=== PATIENT | female | born 1955 | race Native Hawaiian/Other Pacific Islander ===

== ENCOUNTER 2017-01-20 08:47 | Outpatient (CLI) | payer OTHER ==
[~2017-01-20 08:47] MED LIST: ALPR0.5T24 PO; BENA10TA3 PO; BUSPIRONE15 MG PO; CLONIDINE0.1 MG PO; LEVO0.0529 PO; METF500T PO; METO25TA4 OR; MUPI2OIN2 TOP; NUCYNTA ER150 MG OR; PRAVACHOL20 MG PO; PROZAC10 MG PO; ROPINIROLE1 MG OR; TIZA4TAB5 PO; TRAZ100T OR; VESICARE10 MG OR; ZANTAC 75 PO
[2017-01-20 09:22] LABS: PLATELET COUNT 169 K/uL (152-353)
== END 2017-01-20 19:32 | disposition home or self-care (01) ==
LOC: LABW 08:47
PROVIDERS: Internal Medicine Cardiovascular Disease
DX: E78.4 Other hyperlipidemia (principal); I50.9 Heart failure, unspecified
CPT/HCPCS: 36415; 80048; 80061; 80076; 83880; 85027

== ENCOUNTER 2017-05-10 18:05 | Emergency (ER) | payer OTHER ==
[~2017-05-10] VITALS: Ht 165.1 cm; Wt 90.7 kg
[2017-05-10 18:20] VITALS: BP 157/98; TEMP 97.9
== END 2017-05-10 18:39 | disposition home or self-care (01) ==
LOC: ED 18:05
DX: R07.89 Other chest pain (principal)
CPT/HCPCS: 99281

== ENCOUNTER 2018-03-30 12:07 | Outpatient (CLI) | payer OTHER ==
[2018-03-30] MEDS ORDERED: OXYCODONE HCL E30 MG PO (12:42)
[2018-03-30] MEDS ORDERED: GLIM2TAB PO (12:43)
[2018-03-30] MEDS ORDERED: SOMA350 MG PO (12:44)
[2018-03-30] MEDS ORDERED: ROSU10TA PO (12:45)
[2018-03-30] MEDS ORDERED: ZOLOFT25 MG OR (12:46)
[2018-03-30] MEDS ORDERED: CARDURA1 MG PO (12:46)
[2018-03-30] MEDS ORDERED: ENDOCET1 TA3 PO (12:47)
== END 2018-03-30 12:11 | disposition short-term general hospital (02) ==
LOC: AMB 12:07
DX: R53.1 Weakness (principal)
CPT/HCPCS: A0425; A0429

== ENCOUNTER 2018-03-30 12:15 | Emergency (ER) | payer OTHER ==
[~2018-03-30] VITALS: Ht 167.6 cm; Wt 90.7 kg
[2018-03-30 12:25] VITALS: TEMP 98.2
[2018-03-30] MEDS ORDERED: OXYCODONE HCL E30 MG PO (12:42)
[2018-03-30] MEDS ORDERED: GLIM2TAB PO (12:43)
[2018-03-30] MEDS ORDERED: SOMA350 MG PO (12:44)
[2018-03-30] MEDS ORDERED: ROSU10TA PO (12:45)
[2018-03-30] MEDS ORDERED: ZOLOFT25 MG OR (12:46)
[2018-03-30] MEDS ORDERED: CARDURA1 MG PO (12:46)
[2018-03-30] MEDS ORDERED: ENDOCET1 TA3 PO (12:47)
[2018-03-30 13:45] LABS: PLATELET COUNT 189 K/uL (152-353)
[2018-03-30 13:52] LABS: POTASSIUM 3.7 mmol/L (3.6-5.2)
[2018-03-30 14:43] VITALS: BP 110/72
== END 2018-03-30 14:43 | disposition home or self-care (01) ==
LOC: ED 12:15
PROVIDERS: Emergency Medicine
DX: M79.1 Myalgia (principal); G25.2 Other specified forms of tremor; R00.1 Bradycardia, unspecified; Z79.899 Other long term (current) drug therapy
CPT/HCPCS: 80053; 81000; 85027; 87088; 93005; 96372; 99283; J2360

== ENCOUNTER → 2018-06-21 14:55 | Outpatient (CLI) | payer OTHER ==
[~2018-06-21 14:55] MED LIST changes: +CARDURA1 MG PO; +ENDOCET1 TA3 PO; +GLIM2TAB PO; +OXYCODONE HCL E30 MG PO; +ROSU10TA PO; +SOMA350 MG PO; +ZOLOFT25 MG OR
== END | disposition home or self-care (01) ==
LOC: AMB 14:55
DX: E16.1 Other hypoglycemia (principal)

== ENCOUNTER 2018-08-15 08:58 | Outpatient (CLI) | payer OTHER | END 2018-08-15 22:04 | disposition home or self-care (01) | LOC: LABW 08:58 | DX: E11.9 Type 2 diabetes mellitus without complications (principal); E03.4 Atrophy of thyroid (acquired); E78.5 Hyperlipidemia, unspecified | CPT/HCPCS: 36415; 80061; 80069; 82550; 83036; 84436; 84443; 84450; 84460; 84480 ==

== ENCOUNTER 2019-02-16 11:43 | Outpatient (CLI) | payer OTHER ==
[2019-02-16] MEDS ORDERED: METOCLOPRAM5 MG PO (12:31)
[2019-02-16] MEDS ORDERED: HYDROXYZ PAM100 MG PO (12:34)
[2019-02-16] MEDS ORDERED: BENA20TA2 PO (12:38)
== END 2019-02-16 11:46 | disposition short-term general hospital (02) ==
LOC: AMB 11:43
DX: R53.1 Weakness (principal); I95.89 Other hypotension
CPT/HCPCS: A0425; A0427

== ENCOUNTER 2019-02-16 11:48 | Emergency (ER) | payer OTHER ==
[~2019-02-16] VITALS: Ht 165.1 cm; Wt 86.2 kg
[2019-02-16] MEDS ORDERED: METOCLOPRAM5 MG PO (12:31)
[2019-02-16] MEDS ORDERED: HYDROXYZ PAM100 MG PO (12:34)
[2019-02-16] MEDS ORDERED: BENA20TA2 PO (12:38)
[2019-02-16 12:41] LABS: PLATELET COUNT 166 K/uL (152-353)
[2019-02-16 12:54] LABS: POTASSIUM 3.8 mmol/L (3.6-5.2)
[2019-02-16 15:00] VITALS: BP 124/74; TEMP 98
== END 2019-02-16 15:00 | disposition home or self-care (01) ==
LOC: ED 11:48
PROVIDERS: Emergency Medicine
DX: J40 Bronchitis, not specified as acute or chronic (principal); J44.1 Chronic obstructive pulmonary disease with (acute) exacerbation; N39.0 Urinary tract infection, site not specified; R03.1 Nonspecific low blood-pressure reading
CPT/HCPCS: 80053; 80307; 81000; 85027; 87077; 87086; 87088; 87186; 94664; 96374; 99284; J2310

== ENCOUNTER 2019-04-13 12:07 | Outpatient (CLI) | payer OTHER ==
[~2019-04-13 12:07] MED LIST changes: +BENA20TA2 PO; +HYDROXYZ PAM100 MG PO; +METOCLOPRAM5 MG PO
== END 2019-04-13 12:11 | disposition short-term general hospital (02) ==
LOC: AMB 12:07
DX: M79.669 Pain in unspecified lower leg (principal); M25.579 Pain in unspecified ankle and joints of unspecified foot; W18.39XA Other fall on same level, initial encounter; Y92.018 Other place in single-family (private) house as the place of occurrence of the external cause
CPT/HCPCS: A0425; A0427

== ENCOUNTER 2019-04-13 12:24 | Emergency (ER) | payer OTHER ==
[~2019-04-13] VITALS: Ht 165.1 cm; Wt 86.2 kg
[2019-04-13 13:01] LABS: POTASSIUM 3.2 mmol/L (3.6-5.2); SODIUM 141 mmol/L (136-145)
[2019-04-13 13:06] LABS: PLATELET COUNT 183 K/uL (152-353)
[2019-04-13 17:00] VITALS: BP 132/74; TEMP 98.8
== END 2019-04-13 17:00 | disposition home or self-care (01) ==
LOC: ED 12:24
PROVIDERS: Family Medicine
PROC: 2W3LX1Z Immobilization of Right Lower Extremity using Splint (ICD-10-PCS; principal; 2019-04-13)
DX: S72.434A Nondisplaced fracture of medial condyle of right femur, initial encounter for closed fracture (principal); E87.6 Hypokalemia; S93.491A Sprain of other ligament of right ankle, initial encounter; R00.0 Tachycardia, unspecified; W18.39XA Other fall on same level, initial encounter; Y92.89 Other specified places as the place of occurrence of the external cause
CPT/HCPCS: 80053; 82550; 84484; 85027; 93005; 96374; 96375; 99284; J1885; J2175; J2550

== ENCOUNTER 2019-04-15 09:29 | Outpatient (CLI) | payer OTHER | END 2019-04-15 09:57 | disposition short-term general hospital (02) | LOC: AMB 09:29 | DX: M79.605 Pain in left leg (principal); M79.604 Pain in right leg; M25.562 Pain in left knee; M25.561 Pain in right knee | CPT/HCPCS: A0425; A0427 ==

== ENCOUNTER 2019-07-26 01:25 | Observation (INO) | payer OTHER ==
[2019-07-26] VITALS (8 sets, daily range): BP systolic 72–132; BP diastolic 33–75; TEMP 97.5–98.5; Ht 175.3 cm; Wt 84.0 kg
[~2019-07-26] VITALS: Ht 175.3 cm; Wt 84.0 kg
[2019-07-26 02:30] LABS: PLATELET COUNT 224 K/uL (152-353)
[2019-07-26 03:34] LABS: POTASSIUM 4.3 mmol/L (3.6-5.2)
--- NOTE | 2019-07-26 05:44 | NUR ---
07/26/19 0505 TO ROOM 1106 DX DEHYDRATION,ACUTE RENAL FAILURE,HYPOTENSION.PT ALERT ORIENTED.SALINE LOCH 22 GAUDGE INTACT TO LEFT THUMB NO SWELLING NOTED. APPLE JUICE GIVEN TOLERATED WELL.CALL LIGHT WITHIN REACH.CC
[2019-07-26] MEDS ORDERED: FURO20TA67 PO (06:28)
[2019-07-26] MEDS ORDERED: RANI150T78 PO (06:29)
[2019-07-26] MEDS ORDERED: ZANAFLEX2 MG PO (06:30)
[2019-07-26] MEDS ORDERED: TIZA4TAB5 PO (06:31)
[2019-07-26] MEDS ORDERED: SERT100T PO (06:32)
[2019-07-26] MEDS ORDERED: MOBIC15 MG PO (06:33)
[2019-07-26] MEDS ORDERED: LYRICA 100 MG100 MG PO ×2 (06:35→06:51)
[2019-07-26] MEDS ORDERED: METOPROLOL25 M1 PO ×2 (06:36→06:53)
[2019-07-26] MEDS ORDERED: TRAZ100T PO ×2 (06:39→06:54)
[2019-07-26] MEDS ORDERED: GLIM2TAB PO ×2 (06:40→06:55)
--- NOTE | 2019-07-26 07:43 | NUR ---
Patient was admitted with dehydration, hypotension, arf and is on 1800 calorie diet plan, 69"and weight at 181.6 lbs. and elevated WBC, BUN, Creat, gl 133, AST 41 elevated and ALT 14 depressed.alb 3.2 see abnormal labs reviewed all. PMH of HTN and DM, fever. IBW 145+/-10% and is 126% IBW and BMI 26.8 overweight. kcal for weight at 182 = 2482 x 30 and x 25 = 2068 and protein 83-107 grams and fluids 7065-8180 per MD. Recommend: 1- Increase fluids as tolerated. 2- Add High Fiber to present diet. 3- Monitor abnormal labs
[2019-07-26] MEDS ORDERED: OXYCODONE30 MG PO (14:29)
[2019-07-27] VITALS: BP 144/80; TEMP 97.9
[2019-07-27 04:00] VITALS: BP 133/86; TEMP 98.2
[2019-07-27 07:49] LABS: POTASSIUM 4.4 mmol/L (3.6-5.2)
--- NOTE | 2019-07-27 07:58 | NUR ---
PT DOSE NOT WANT A BREATHING TX. BBS CTA.
[2019-07-27 08:00] VITALS: BP 140/84; TEMP 98.1
[2019-07-27 08:15] LABS: PLATELET COUNT 180 K/uL (152-353)
[2019-08-12] MEDS ORDERED: TRAZ100T PO (01:27)
[2019-08-12] MEDS ORDERED: BENA20TA2 PO (01:28)
== END 2019-07-27 10:25 | disposition home or self-care (01) ==
LOC: ED 01:25 → MED/SURG 04:13
PROVIDERS: Emergency Medicine; ADMIT Internal Medicine
DX: N17.8 Other acute kidney failure (principal); N18.9 Chronic kidney disease, unspecified; N10 Acute pyelonephritis; I10 Essential (primary) hypertension; Z91.81 History of falling; F17.210 Nicotine dependence, cigarettes, uncomplicated; Z71.6 Tobacco abuse counseling; E86.0 Dehydration; E03.8 Other specified hypothyroidism; E11.9 Type 2 diabetes mellitus without complications; F41.8 Other specified anxiety disorders; N32.81 Overactive bladder; E78.49 Other hyperlipidemia; G89.4 Chronic pain syndrome; I50.9 Heart failure, unspecified; G62.89 Other specified polyneuropathies; K21.9 Gastro-esophageal reflux disease without esophagitis
CPT/HCPCS: 80048; 80053; 80307; 81000; 82570; 84300; 84443; 85027; 87077; 87086; 87088; 87186; 93005; 94760; 96360; 96366; 99220; 99284; G0378; J1650; J1956

== ENCOUNTER 2019-08-11 21:00 | Outpatient (CLI) | payer OTHER ==
[~2019-08-11 21:00] MED LIST changes: +FURO20TA67 PO; +LYRICA 100 MG100 MG PO; +METOPROLOL25 M1 PO; +MOBIC15 MG PO; +OXYCODONE30 MG PO; +RANI150T78 PO; +SERT100T PO; +TRAZ100T PO; +ZANAFLEX2 MG PO
[2019-08-12] MEDS ORDERED: TRAZ100T PO ×2 (01:27)
[2019-08-12] MEDS ORDERED: BENA20TA2 PO ×2 (01:28)
== END 2019-08-11 21:04 | disposition short-term general hospital (02) ==
LOC: AMB 21:00
DX: M25.572 Pain in left ankle and joints of left foot (principal); M25.562 Pain in left knee; R53.1 Weakness; W19.XXXA Unspecified fall, initial encounter; Y92.018 Other place in single-family (private) house as the place of occurrence of the external cause
CPT/HCPCS: A0425; A0429

== ENCOUNTER 2019-08-11 21:16 | Observation (INO) | payer OTHER ==
[~2019-08-11] VITALS: Ht 170.2 cm; Wt 84.9 kg
[2019-08-11 21:16] VITALS: BP 117/80; TEMP 98.5
[2019-08-11 22:32] LABS: PLATELET COUNT 133 K/uL (152-353)
[2019-08-11 22:40] LABS: POTASSIUM 3.5 mmol/L (3.6-5.2); SODIUM 141 mmol/L (136-145)
[2019-08-12 00:43] VITALS: BP 144/93; TEMP 99.2; Ht 170.2 cm; Wt 84.9 kg
[2019-08-12] MEDS ORDERED: TRAZ100T PO ×2 (01:27)
[2019-08-12] MEDS ORDERED: BENA20TA2 PO ×2 (01:28)
[2019-08-12 04:00] VITALS: BP 117/78; TEMP 98.8
[2019-08-12 08:00] VITALS: BP 99/65; TEMP 99.2
[2019-08-12 08:48] LABS: POTASSIUM 3.7 mmol/L (3.6-5.2)
== END 2019-08-12 12:04 | disposition home or self-care (01) ==
LOC: ED 21:16 → MED/SURG 23:45
PROVIDERS: Emergency Medicine; ADMIT Family Medicine
DX: S80.12XA Contusion of left lower leg, initial encounter (principal); W18.39XA Other fall on same level, initial encounter; Y92.89 Other specified places as the place of occurrence of the external cause; E83.42 Hypomagnesemia; R53.83 Other fatigue; I10 Essential (primary) hypertension; D69.6 Thrombocytopenia, unspecified; E11.9 Type 2 diabetes mellitus without complications; K21.9 Gastro-esophageal reflux disease without esophagitis; I25.10 Atherosclerotic heart disease of native coronary artery without angina pectoris; E78.00 Pure hypercholesterolemia, unspecified; E07.89 Other specified disorders of thyroid; J45.998 Other asthma; Z79.899 Other long term (current) drug therapy
CPT/HCPCS: 36415; 36600; 51702; 80048; 80053; 80307; 81000; 82805; 83735; 84484; 85027; 93005; 94664; 94760; 96365; 99220; 99284; G0378; J2930; J3475

== ENCOUNTER 2019-08-20 14:28 | Outpatient (CLI) | payer OTHER | END 2019-08-20 14:32 | disposition short-term general hospital (02) | LOC: AMB 14:28 | DX: R41.82 Altered mental status, unspecified (principal); R53.83 Other fatigue; S00.83XA Contusion of other part of head, initial encounter; R26.81 Unsteadiness on feet; R25.1 Tremor, unspecified; W19.XXXA Unspecified fall, initial encounter | CPT/HCPCS: A0425; A0427 ==

== ENCOUNTER 2019-08-20 14:47 | Observation (INO) | payer OTHER ==
[2019-08-20] VITALS (8 sets, daily range): BP systolic 90–158; BP diastolic 57–121; TEMP 97.7–98; Ht 170.2 cm; Wt 81.8 kg
[~2019-08-20] VITALS: Ht 170.2 cm; Wt 81.8 kg
[2019-08-20 15:34] LABS: PLATELET COUNT 245 K/uL (152-353)
[2019-08-20 15:44] LABS: POTASSIUM 3.8 mmol/L (3.6-5.2); SODIUM 144 mmol/L (136-145)
[2019-08-21] VITALS (7 sets, daily range): BP systolic 108–124; BP diastolic 60–77; TEMP 98–98.9
[2019-08-22 00:22] VITALS: BP 132/89; TEMP 98.8
[2019-08-22 04:00] VITALS: BP 107/74; TEMP 98.3
[2019-08-22 08:00] VITALS: BP 118/87; TEMP 98.4
[2019-08-22 12:00] VITALS: BP 161/95; TEMP 98
== END 2019-08-22 14:00 | disposition home or self-care (01) ==
LOC: ED 14:47 → MED/SURG 16:20 → ED 16:20 → MED/SURG 16:20
PROVIDERS: ADMIT Emergency Medicine
DX: E11.649 Type 2 diabetes mellitus with hypoglycemia without coma (principal); E11.22 Type 2 diabetes mellitus with diabetic chronic kidney disease; I13.0 Hypertensive heart and chronic kidney disease with heart failure and stage 1 through stage 4 chronic kidney disease, or unspecified chronic kidney disease; N18.3 Chronic kidney disease, stage 3 (moderate); E78.49 Other hyperlipidemia; G89.4 Chronic pain syndrome; E11.42 Type 2 diabetes mellitus with diabetic polyneuropathy; K21.9 Gastro-esophageal reflux disease without esophagitis; N32.81 Overactive bladder
CPT/HCPCS: 36415; 36600; 51702; 80053; 80307; 81000; 82805; 82947; 82948; 82962; 83735; 84484; 85027; 93005; 96360; 96365; 96366; 96374; 96375; 99220; 99284; G0378; J0696; J7060

== ENCOUNTER 2019-11-05 08:03 | Outpatient (CLI) | payer OTHER | END 2019-11-05 08:10 | disposition short-term general hospital (02) | LOC: AMB 08:03 | DX: M79.671 Pain in right foot (principal); W19.XXXA Unspecified fall, initial encounter; Y93.89 Activity, other specified; Y92.89 Other specified places as the place of occurrence of the external cause | CPT/HCPCS: A0425; A0427 ==

== ENCOUNTER 2019-11-05 08:12 | Emergency (ER) | payer OTHER ==
[~2019-11-05] VITALS: Ht 162.6 cm; Wt 81.6 kg
[2019-11-05 08:12] VITALS: TEMP 97.2
[2019-11-05 09:34] LABS: PLATELET COUNT 156 K/uL (152-353)
[2019-11-05 09:43] LABS: POTASSIUM 4.7 mmol/L (3.6-5.2)
[2019-11-05 11:00] VITALS: BP 107/76
== END 2019-11-05 11:00 | disposition home or self-care (01) ==
LOC: ED 08:16
PROVIDERS: Emergency Medicine
DX: S93.691A Other sprain of right foot, initial encounter (principal); X58.XXXA Exposure to other specified factors, initial encounter; Y93.89 Activity, other specified
CPT/HCPCS: 36415; 80053; 85027; 96360; 96375; 99284; J1885

== ENCOUNTER 2020-02-06 13:08 | Outpatient (CLI) | payer OTHER ==
[2020-02-06 13:51] LABS: POTASSIUM 4.3 mmol/L (3.6-5.2)
== END 2020-02-06 20:58 | disposition home or self-care (01) ==
LOC: LAB 13:08
PROVIDERS: Internal Medicine
DX: I12.9 Hypertensive chronic kidney disease with stage 1 through stage 4 chronic kidney disease, or unspecified chronic kidney disease (principal); E11.22 Type 2 diabetes mellitus with diabetic chronic kidney disease
CPT/HCPCS: 80048

== ENCOUNTER 2020-12-10 15:24 | Emergency (ER) | payer OTHER ==
[~2020-12-10] VITALS: Ht 160 cm; Wt 82.1 kg
[2020-12-10 16:14] VITALS: BP 125/87; TEMP 97.1
== END 2020-12-10 16:17 | disposition home or self-care (01) ==
LOC: ED 15:24
DX: M06.89 Other specified rheumatoid arthritis, multiple sites (principal)
CPT/HCPCS: 96372; 99282; J1885

== ENCOUNTER 2021-01-21 10:35 | Outpatient (CLI) | payer OTHER ==
[2021-01-21 10:48] LABS: PLATELET COUNT 211 K/uL (152-353)
[2021-01-21 11:57] LABS: POTASSIUM 4.3 mmol/L (3.6-5.2)
== END 2021-01-21 21:24 | disposition home or self-care (01) ==
LOC: LAB 10:35
PROVIDERS: ATTEND Internal Medicine
DX: E11.41 Type 2 diabetes mellitus with diabetic mononeuropathy (principal); E03.8 Other specified hypothyroidism; I12.9 Hypertensive chronic kidney disease with stage 1 through stage 4 chronic kidney disease, or unspecified chronic kidney disease; N18.4 Chronic kidney disease, stage 4 (severe)
CPT/HCPCS: 80053; 80061; 83036; 84443; 85027

== ENCOUNTER 2021-10-21 10:02 | Outpatient (CLI) | payer OTHER | END 2021-10-21 19:02 | disposition home or self-care (01) | LOC: RAD 10:02 | PROVIDERS: ATTEND Family Medicine | DX: R05.9 Cough, unspecified (principal); J44.9 Chronic obstructive pulmonary disease, unspecified ==

== ENCOUNTER 2021-11-04 09:39 | Outpatient (CLI) | payer OTHER | END 2021-11-04 19:36 | disposition home or self-care (01) | LOC: RAD 09:39 | PROVIDERS: ATTEND Nurse Practitioner Family | DX: M06.4 Inflammatory polyarthropathy (principal); M54.2 Cervicalgia; M54.59 Other low back pain ==

== ENCOUNTER 2022-08-18 08:27 | Outpatient (CLI) | payer OTHER | END 2022-08-18 23:56 | disposition home or self-care (01) | LOC: LABW 08:27 | PROVIDERS: ATTEND Psychiatry & Neurology Neurology | DX: R41.82 Altered mental status, unspecified (principal); M47.812 Spondylosis without myelopathy or radiculopathy, cervical region | CPT/HCPCS: 36415; 82607; 82746; 84443; 85652; 86038 ==

== ENCOUNTER 2022-08-20 08:19 | Outpatient (CLI) | payer OTHER | END 2022-08-20 18:57 | disposition home or self-care (01) | LOC: MRI 08:19 | PROVIDERS: ATTEND Psychiatry & Neurology Neurology | DX: R41.82 Altered mental status, unspecified (principal); M47.812 Spondylosis without myelopathy or radiculopathy, cervical region ==

== ENCOUNTER 2023-02-15 13:15 | Observation (INO) | payer OTHER ==
[~2023-02-15] VITALS: Ht 167.6 cm; Wt 82.7 kg
[2023-02-15 13:15] VITALS: BP 116/79; TEMP 97.8
[~2023-02-15 13:15] MED LIST changes: -SERT100T PO; +SERT50TA PO
[2023-02-15 14:09] LABS: PLATELET COUNT 277 K/uL (152-353)
[2023-02-15 15:05] LABS: PARTIAL THROMBOPLASTIN TIME 23.9 SECONDS (23.9-36.7)
[2023-02-15 17:15] VITALS: BP 127/77; TEMP 98.2
[2023-02-15 18:12] VITALS: BP 127/77; TEMP 98.2; Ht 167.6 cm; Wt 82.7 kg
[2023-02-15] MEDS ORDERED: ROXICODONE15 M1 PO (18:59)
[2023-02-15] MEDS ORDERED: LANTUS100 UNIT/M SC (19:00)
[2023-02-16] VITALS (7 sets, daily range): BP systolic 107–135; BP diastolic 53–77; TEMP 97.8–98.7
[2023-02-16 05:36] LABS: PLATELET COUNT 280 K/uL (152-353)
[2023-02-16 05:52] LABS: POTASSIUM 3.7 mmol/L (3.6-5.2)
[2023-02-17 03:30] VITALS: BP 109/52; TEMP 98
[2023-02-17 08:00] VITALS: BP 138/70; TEMP 98.6
[2023-02-17 08:24] LABS: POTASSIUM 3.3 mmol/L (3.6-5.2)
[2023-02-17 08:44] LABS: PLATELET COUNT 206 K/uL (152-353)
[2023-02-17] MEDS ORDERED: LANTUS100 UNIT/M SC (09:47)
[2023-02-17] MEDS ORDERED: BUDE1AER5 INH (09:49)
[2023-02-17] MEDS ORDERED: IPRAAER INH (09:56)
[2023-02-17] MEDS ORDERED: ALBU90AE13 INH (09:59)
[2023-02-17] MEDS ORDERED: AZIT250T3 PO (10:00)
== END 2023-02-17 11:10 | disposition home or self-care (01) ==
LOC: ED 13:15 → MED/SURG 16:30
PROVIDERS: Internal Medicine; ADMIT Emergency Medicine; ATTEND Internal Medicine
DX: J44.1 Chronic obstructive pulmonary disease with (acute) exacerbation (principal); Z72.0 Tobacco use; E11.65 Type 2 diabetes mellitus with hyperglycemia; Z79.4 Long term (current) use of insulin; I10 Essential (primary) hypertension; E78.49 Other hyperlipidemia; E03.8 Other specified hypothyroidism; F32.89 Other specified depressive episodes; G89.4 Chronic pain syndrome; R06.02 Shortness of breath
CPT/HCPCS: 36415; 80053; 82947; 82948; 83880; 84484; 85027; 85610; 85730; 93005; 94664; 94760; 96360; 96361; 96372; 96374; 96375; 99221; 99284; G0378; J0456; J1650; J1815; J2930

== ENCOUNTER 2023-11-21 13:56 | Observation (INO) | payer OTHER ==
[~2023-11-21] VITALS: Ht 167.6 cm; Wt 81.2 kg
[~2023-11-21 13:56] MED LIST changes: +ALBU90AE13 INH; +AZIT250T3 PO; +BUDE1AER5 INH; +EUTHYROX50 MCG PO; +IPRAAER INH; +LANTUS100 UNIT/M SC; -LEVO0.0529 PO; +ROXICODONE15 M1 PO; +SOLI10TAB PO; -VESICARE10 MG OR
[2023-11-21 14:00] VITALS: BP 148/97; TEMP 97.8
[2023-11-21] MEDS ORDERED: IPRATROPIUM-ALBUTEROL 1 SOL SOL INH ONE (14:08)
[2023-11-21] MEDS ORDERED: METHYLPREDNISOLONE SOD SUCC 125 MG ML INJ ONE (14:08)
[2023-11-21] MEDS ORDERED: METHYLPREDNISOLONE SOD SUCC 125 MG IV ONE (14:23)
[2023-11-21 14:30] VITALS: BP 164/99
[2023-11-21 14:31] LABS: PLATELET COUNT 227 K/uL (152-353)
[2023-11-21 14:40] LABS: POTASSIUM 3.9 mmol/L (3.6-5.2); SODIUM 143 mmol/L (136-145)
[2023-11-21 15:00] VITALS: BP 140/93
[2023-11-21 15:30] VITALS: BP 157/95
[2023-11-21] MEDS ORDERED: ASPIRIN 81MG CHEW TAB PO ONE (15:36)
[2023-11-21] MEDS ORDERED: NITROGLYCERIN 1 GM OIN TOP ONE (15:37)
[2023-11-21] MEDS ORDERED: NITROGLYCERIN 1 GM OIN ONE (15:39)
[2023-11-21] MEDS ORDERED: ASPIRIN 81MG CHEW TAB ONE (15:39)
[2023-11-21] MEDS ORDERED: [UNRECOGNIZED DRUG - OTHER] PO (16:48)
[2023-11-21] MEDS ORDERED: MEMA10TA2 PO (16:49)
[2023-11-21] MEDS ORDERED: ALBUTEROL108 MCG/AC INH (16:49)
[2023-11-21] MEDS ORDERED: FLUTMIS6 INH (16:50)
[2023-11-21] MEDS ORDERED: TIOTCAP2 INH (16:50)
[2023-11-21] MEDS ORDERED: [UNRECOGNIZED DRUG - OTHER] OPTH (16:51)
[2023-11-21] MEDS ORDERED: XYZAL ALLERGY 245 MG PO (16:51)
[2023-11-21] MEDS ORDERED: VENLAFAXINE HYD75 M2 PO (16:51)
[2023-11-21 16:52] VITALS: BP 147/91; TEMP 97.5; Ht 167.6 cm; Wt 81.2 kg
[2023-11-21] MEDS ORDERED: BENA20TA2 PO (16:52)
[2023-11-21] MEDS ORDERED: REMERON SLTB45 MG PO (16:52)
[2023-11-21] MEDS ORDERED: JARDIANCE25 MG PO (16:53)
[2023-11-21] MEDS ORDERED: INSULIN 100 UNITS/ML EA SC PRN (17:56)
[2023-11-21] MEDS ORDERED: MORPHINE SULFATE 4 MG IV PRN (17:59)
[2023-11-21] MEDS ORDERED: TORADOL 30MG/ML INJ IVP SCH (18:00)
[2023-11-21] MEDS ORDERED: Ondansetron HCl 4 MG INJ IV PRN (18:45)
[2023-11-21 20:00] VITALS: BP 126/72; TEMP 98.5
[2023-11-21] MEDS ORDERED: MORPHINE SULFATE 4 MG INJ IV PRN (20:30)
[2023-11-21] MEDS ORDERED: ENOXAPARIN SODIUM SC SCH (21:00)
[2023-11-21] MEDS ORDERED: NYSTATIN POWDER 15 GM BTL EX SCH (21:00)
[2023-11-22] VITALS: BP 104/62; TEMP 98.3
[2023-11-22 04:00] VITALS: BP 104/77; TEMP 98.1
[2023-11-22 05:37] LABS: POTASSIUM 4.2 mmol/L (3.6-5.2)
[2023-11-22 05:38] LABS: PLATELET COUNT 215 K/uL (152-353)
[2023-11-22 07:56] VITALS: BP 105/62; TEMP 98.3
[2023-11-22] MEDS ORDERED: PANTOPRAZOLE SODIUM 40 MG TAB PO SCH (09:00)
[2023-11-22 12:13] VITALS: BP 128/71; TEMP 98.1
[2023-11-22 15:24] VITALS: BP 137/82; TEMP 97.9
== END 2023-11-22 16:24 | disposition home or self-care (01) ==
LOC: ED 13:56 → MED/SURG 15:46
PROVIDERS: ADMIT Internal Medicine Endocrinology, Diabetes & Metabolism; ATTEND Internal Medicine Endocrinology, Diabetes & Metabolism
DX: M54.6 Pain in thoracic spine (principal); R79.1 Abnormal coagulation profile; E11.9 Type 2 diabetes mellitus without complications; G89.4 Chronic pain syndrome; I10 Essential (primary) hypertension; E78.49 Other hyperlipidemia; F03.90 Unspecified dementia, unspecified severity, without behavioral disturbance, psychotic disturbance, mood disturbance, and anxiety; E03.8 Other specified hypothyroidism; G47.00 Insomnia, unspecified; F17.210 Nicotine dependence, cigarettes, uncomplicated; R07.89 Other chest pain; R06.02 Shortness of breath; J44.1 Chronic obstructive pulmonary disease with (acute) exacerbation
CPT/HCPCS: 36415; 80048; 80053; 82948; 84484; 85027; 85379; 85610; 85730; 93005; 94664; 96372; 96374; 96375; 99221; 99284; A9540; A9567; G0378; J1650; J1815; J1885; J2270; J2930